=== PATIENT | male | born 1980 | race Caucasian/White ===

== ENCOUNTER 2020-12-25 07:26 | Observation (INO) ==
[2020-12-25 08:16] LABS: Basophils # 0.1 K/mcL (0.0-0.2); Basophils % 0.8 %; Eosinophils # 0.4 K/mcL (0.0-0.6); Eosinophils % 4.5 %; Hematocrit 42.6 % (37.5-50.1); Hemoglobin 13.3 g/dL (12.9-16.9); Immature Granulocytes % 0.4 % (0-4); Lymphocytes % 21.4 %; Mean Corpuscular HGB Conc 31.2 g/dL (31.6-35.5); Mean Corpuscular Hemoglobin 25.6 pg (28.0-33.3); Mean Corpuscular Volume 82.1 fL (83.0-100.0); Mean Platelet Volume 10.4 fL (9.4-12.4); Monocytes # 0.6 K/mcL (0.0-1.3); Monocytes % 6.6 %; Neutrophils # 6.1 K/mcL (1.6-8.9); Platelet Count 233 K/mcL (140-400); Red Blood Count 5.19 M/mcL (4.19-5.50); Red Cell Distribution Width 15.3 % (11.5-14.5); Segmented Neutrophils % 66.3 %; White Blood Count 9.2 K/mcL (4.3-11.1)
[2020-12-25 08:42] LABS: BUN/Creatinine Ratio 14 (6-26); Blood Urea Nitrogen 11 mg/dL (6-20); Calcium 8.9 mg/dL (8.6-10.3); Carbon Dioxide 26 mEq/L (23-29); Chloride 106 mEq/L (98-107); Glucose 134 mg/dL (70-105); Osmolality,Calculated 285 (280-300); Potassium 3.9 mEq/L (3.5-5.1); Sodium 137 mEq/L (136-145); Troponin I < 0.03 ng/mL (< 0.04); eGFR For African Americans > 60 (> 60); eGFR For Non-African Americans > 60 (> 60)
[2020-12-25] MEDS ORDERED: Morphine Sulfate 2 MG/ML SYRINGE IVP ONE (08:57)
[2020-12-25] MEDS ORDERED: Nitroglycerin 1 INCH/GM PACKET TP ONE (08:57)
[2020-12-25] MEDS ORDERED: *HR* HYDROcodone/Acet 5/325 mg TABLET PO PRN (09:12)
[2020-12-25] MEDS ORDERED: Naloxone 0.4 MG/ML INJ IVP PRN (09:12)
[2020-12-25] MEDS ORDERED: Ondansetron 4 MG/2 ML VIAL IVP PRN (09:12)
[2020-12-25] MEDS ORDERED: *HR* OxyCODONE Immed Rel 5 MG TABLET PO PRN (09:12)
[2020-12-25] MEDS ORDERED: Nitroglycerin 0.4 MG TAB.SUBL SL PRN (09:14)
[2020-12-25] MEDS ORDERED: Metoprolol XL (24 HR) Succ 25 MG TAB.ER.24H PO SCH (09:15)
[2020-12-25 09:29] LABS: Activated Partial Thrombo Time 29.4 Seconds (26.0-36.0)
[2020-12-25 09:31] LABS: Amphetamine Screen,Urine Negative ng/mL (Cutoff=1000); Barbiturate Screen,Urine Negative ng/mL (Cutoff=200); Benzodiazepines Screen,Urine Positive ng/mL (Cutoff=200); Cannabinoid Screen,Urine Negative ng/mL (Cutoff = 50); Cocaine Screen,Urine Negative ng/mL (Cutoff= 300); Opiate Screen,Urine Positive ng/mL (Cutoff=300); Phencyclidine Screen,Urine Negative ng/mL (Cutoff=25)
[2020-12-25 09:34] LABS: Creatine Kinase 47 Units/L (30-223); Lipase 22 Units/L (11-82)
[2020-12-25 09:47] LABS: Thyroid Stimulating Hormone 3.867 mcIU/mL (0.340-5.600)
[2020-12-25] MEDS: Nicotine 14 MG PATCH.TD24 TD SCH (13:33)
[2020-12-25] MEDS: *HR* OxyCODONE Immed Rel 15 MG TABLET PO SCH ×2 (13:33→18:01)
[2020-12-25] MEDS: Gabapentin 300 MG CAPSULE PO SCH ×2 (15:51→20:08)
[2020-12-26] MEDS: *HR* OxyCODONE Immed Rel 15 MG TABLET PO SCH ×4 (00:08→18:11)
[2020-12-26 06:36] LABS: Basophils # 0.1 K/mcL (0.0-0.2); Basophils % 0.9 %; Eosinophils # 0.5 K/mcL (0.0-0.6); Eosinophils % 5.3 %; Hemoglobin 13.9 g/dL (12.9-16.9); Immature Granulocytes % 0.4 % (0-4); Lymphocytes # 2.2 K/mcL (0.6-4.6); Lymphocytes % 25.2 %; Mean Corpuscular HGB Conc 30.9 g/dL (31.6-35.5); Mean Corpuscular Hemoglobin 25.2 pg (28.0-33.3); Mean Corpuscular Volume 81.7 fL (83.0-100.0); Mean Platelet Volume 10.4 fL (9.4-12.4); Monocytes # 0.7 K/mcL (0.0-1.3); Monocytes % 7.9 %; Neutrophils # 5.2 K/mcL (1.6-8.9); Platelet Count 246 K/mcL (140-400); Red Blood Count 5.51 M/mcL (4.19-5.50); Red Cell Distribution Width 15.2 % (11.5-14.5); Segmented Neutrophils % 60.3 %; White Blood Count 8.5 K/mcL (4.3-11.1)
[2020-12-26 06:53] LABS: BUN/Creatinine Ratio 18 (6-26); Blood Urea Nitrogen 13 mg/dL (6-20); Carbon Dioxide 24 mEq/L (23-29); Chloride 107 mEq/L (98-107); Sodium 135 mEq/L (136-145)
[2020-12-26 06:54] LABS: Alanine Aminotransferase 22 Units/L (7-52); Albumin 3.6 g/dL (3.5-5.7); Albumin/Globulin Ratio 1.2 (1.1-2.2); Alkaline Phosphatase 138 Units/L (34-104); Aspartate Amino Transferase 19 Units/L (13-39); Bilirubin,Total 0.4 mg/dL (0.3-1.0); Calcium 8.9 mg/dL (8.6-10.3); Chol/HDL Ratio 3.7 (0-4.9); Cholesterol 126 mg/dL (< 200); Globulin 3.1 g/dL (2.4-3.5); Glucose 110 mg/dL (70-105); HDL Cholesterol 34 mg/dL (40-59); LDL Cholesterol,Calculated 76 mg/dL (< 100); Osmolality,Calculated 281 (280-300); Phosphorous 3.3 mg/dL (2.7-4.5); Total Protein 6.7 g/dL (6.4-8.9); Triglycerides 81 mg/dL (< 150); eGFR For African Americans > 60 (> 60); eGFR For Non-African Americans > 60 (> 60)
[2020-12-26] MEDS ORDERED: *HR* Rivaroxaban 10 MG TABLET PO SCH (09:00)
[2020-12-26] MEDS ORDERED: amLODIPine 5 MG TABLET PO SCH (09:00)
[2020-12-26] MEDS: Gabapentin 300 MG CAPSULE PO SCH ×3 (09:51→20:25)
[2020-12-26] MEDS: Isosorbide MONOnitrate (24 HR) 60 MG TAB.ER.24H PO SCH (09:51)
[2020-12-26] MEDS: Furosemide 40 MG TABLET PO SCH (09:51)
[2020-12-26] MEDS: Aspirin Enteric Coated 81 MG Tablet PO SCH (09:51)
[2020-12-26] MEDS: Metoprolol XL (24 HR) Succ 50 MG TAB.ER.24H PO SCH (09:52)
[2020-12-26] MEDS: Nicotine 14 MG PATCH.TD24 TD SCH (09:54)
[2020-12-26] MEDS ORDERED: Acetaminophen 325 MG TABLET PO PRN (20:39)
[2020-12-26] MEDS ORDERED: *HR* OxyCODONE Immed Rel 5 MG TABLET PO ONE (21:08)
[2020-12-27] MEDS: *HR* OxyCODONE Immed Rel 15 MG TABLET PO PRN ×3 (00:15→12:13)
[2020-12-27 02:22] LABS: Basophils # 0.1 K/mcL (0.0-0.2); Basophils % 0.6 %; Eosinophils # 0.4 K/mcL (0.0-0.6); Eosinophils % 4.4 %; Hematocrit 43.5 % (37.5-50.1); Hemoglobin 14.2 g/dL (12.9-16.9); Immature Granulocytes % 0.3 % (0-4); Lymphocytes # 2.2 K/mcL (0.6-4.6); Lymphocytes % 21.7 %; Mean Corpuscular HGB Conc 32.6 g/dL (31.6-35.5); Mean Corpuscular Hemoglobin 26.5 pg (28.0-33.3); Mean Corpuscular Volume 81.3 fL (83.0-100.0); Mean Platelet Volume 10.6 fL (9.4-12.4); Monocytes # 0.6 K/mcL (0.0-1.3); Monocytes % 6.1 %; Neutrophils # 6.6 K/mcL (1.6-8.9); Platelet Count 239 K/mcL (140-400); Red Blood Count 5.35 M/mcL (4.19-5.50); Red Cell Distribution Width 15.1 % (11.5-14.5); Segmented Neutrophils % 66.9 %; White Blood Count 9.9 K/mcL (4.3-11.1)
[2020-12-27 02:44] LABS: BUN/Creatinine Ratio 18 (6-26); Blood Urea Nitrogen 13 mg/dL (6-20); Carbon Dioxide 22 mEq/L (23-29); Chloride 103 mEq/L (98-107); Glucose 199 mg/dL (70-105); Osmolality,Calculated 286 (280-300); Potassium 3.9 mEq/L (3.5-5.1); Sodium 135 mEq/L (136-145); eGFR For African Americans > 60 (> 60); eGFR For Non-African Americans > 60 (> 60)
[2020-12-27] MEDS ORDERED: lisinopriL 20 MG TABLET PO SCH (09:00)
[2020-12-27] MEDS: Nicotine 14 MG PATCH.TD24 TD SCH (10:16)
[2020-12-27] MEDS: Isosorbide MONOnitrate (24 HR) 60 MG TAB.ER.24H PO SCH (10:17)
[2020-12-27] MEDS: Gabapentin 300 MG CAPSULE PO SCH ×2 (10:17→15:48)
[2020-12-27] MEDS: Furosemide 40 MG TABLET PO SCH ×2 (10:17→10:20)
[2020-12-27] MEDS: Aspirin Enteric Coated 81 MG Tablet PO SCH (10:17)
[2020-12-27] MEDS: Metoprolol XL (24 HR) Succ 50 MG TAB.ER.24H PO SCH (10:17)
[2020-12-27 11:37] VITALS: BP 116/67
[2020-12-27] MEDS ORDERED: ISOVUE-370 200 ML INFUS..BTL ONE (12:04)
[2020-12-27] MEDS ORDERED: Heparin 1,000 UNITS/500 mL 500 ML ONE (12:04)
[2020-12-27] MEDS ORDERED: Nitroglycerin 1,000 MCG/5 ML VIAL IV ONE (12:04)
[2020-12-27] MEDS ORDERED: 0.9 % Sodium Chloride 2,000 ML ONE (12:04)
[2020-12-27] MEDS ORDERED: *HR* Heparin 10,000 UNIT/10 ML VIAL ONE (12:04)
[2020-12-27] MEDS ORDERED: *HR* Midazolam HCl 2 MG/2 ML VIAL ONE (12:21)
[2020-12-27] MEDS ORDERED: *HR* FentaNYL (PF) 100 MCG/2 ML VIAL ONE (12:21)
[2020-12-27] MEDS ORDERED: *HR* OxyCODONE Immed Rel 15 MG TABLET PO PRN (13:45)
[2020-12-27] MEDS ORDERED: Ranolazine 500 MG TAB.ER.12H PO SCH (14:15)
== END 2020-12-27 18:40 | disposition home or self-care (01) ==
LOC: 2ANU 07:26 → EMEROOARM 07:26 → SUATTDRO 09:38 → 2ANU 10:09
PROVIDERS: ADMIT Internal Medicine; ATTEND Internal Medicine